=== PATIENT | female | born 1970 | race Caucasian/White ===

== ENCOUNTER 2020-05-31 01:10 | Outpatient (CLI) | payer OTHER, SELFPAY ==
[2020-05-31 18:04] LABS: SARS-CoV-2 RNA PCR Negative
== END 2020-05-31 01:11 | disposition home or self-care (01) ==
LOC: ANHCOVIDDT 01:10
PROVIDERS: PCP Family Medicine; Visit Provider Internal Medicine Gastroenterology
DX: Z01.818 Encounter for other preprocedural examination (principal); Z20.828 Contact with and (suspected) exposure to other viral communicable diseases
CPT/HCPCS: 87635; C9803; U0003

== ENCOUNTER 2020-06-04 00:59 | Day surgery (SDC) | payer OTHER, SELFPAY ==
[2020-05-28 16:03] VITALS: BMI 26.4
[2020-06-04 07:55] VITALS: BP 116/74; PULSE 89; RESP 16; TEMP 37.2; O2SAT 96; BMI 25.6
[2020-06-04] MEDS: LACTATED RINGERS 1,000 ML 150 ML IV CONT (08:03)
--- NOTE | 2020-06-04 08:45 | WPDANESEPPF ---
Anes - Initial Pre Proc Eval Procedure: Operation Date: 06/04/20 09:00 Proposed Procedures p Screening Colonoscopy - Jameel Villafana MD Date/Time: 06/04/20 08:45 Surgeon: Jameel Villafana MD Pre Op Diagnosis: Neoplasm Screening Patient Data Age: 50 Gender: F Height: 5 ft 8 in Weight: 76.5 kg Last Vital Signs Temp 37.2 C 06/04/20 07:55 Pulse 89 06/04/20 07:55 Resp 16 06/04/20 07:55 BP 116/74 06/04/20 07:55 Pulse Ox 96 06/04/20 07:55 Allergies Allergy/AdvReac Type Severity Reaction Status Date / Time No Known Allergies Verified 06/04/20 07:54 Home Medications Medication Instructions Recorded Confirmed Type peg 3350 240 gram-electrolytes 240 ml PO Q10M #4000 ml 05/28/20 Rx 22.72 gram-6.72 g-5.84 g powdr for soln Patient hx anesthesia problems: none Family hx anesthesia problems: none PMFSH Past Medical History Medical History Deficient knowledge of caesarean delivery Surgical History Surgical History History of ankle surgery History of toe surgery Social History Social History Years smoked: 10 Smoking status: Current some day smoker Tobacco type: cigarettes Second hand tobacco smoke exposure: Yes Alcohol intake: current Drinks per week: 6 Alcohol use details: BEER Substance use: never Substance use type: does not use Living arrangements: with family Gender identity (if verbalized by the patient): Female Spiritual care concerns: No Agree to blood products: Yes Anes - Eval Final PreProcedure Day of Procedure 06/04/20 08:45 Patient weight: normal Heart: regular rate and rhythm Lungs: decreased breath sounds Airway: Mallampati scale class II Neurological: alert and oriented Last oral intake: >/= 8 hours ASA classification: II Emergent: no Anesthetic plan: proceed Anesthesia type and monitoring: general GIVS and standard monitoring Informed Consent: The patient's anesthetic plan and its attendant risks and benefits were discussed with the patient/family/POA. Questions were solicited and answers provided to the satisfaction of the patient/family/POA.
--- NOTE | 2020-06-04 09:04 | PM.HPGS ---
History of Present Illness History of Present Illness Consent: Risks, benefits, and alternatives have been discussed and questions answered. Patient agrees to proceed with procedure. Chief complaint: Neoplasm Screening Narrative: Rekha Davenport is a 50 year old female here for first screening colonoscopy Review of Systems Constitutional: Constitutional: Denies headache(s) and Denies weakness Eyes: Eyes: Denies blurry vision ENT: Reports Normal hearing present, Denies headache(s) and Denies neck pain Cardiovascular: Cardiovascular: Denies chest pain and Denies dyspnea Respiratory: Respiratory: Denies dyspnea Gastrointestinal: Gastrointestinal: Reports no additional gastrointestinal complaints Genitourinary: Genitourinary: Denies dysuria Musculoskeletal: Musculoskeletal: Denies neck pain Integumentary/Breasts: Skin/Breast: Denies dry skin Neurologic: Reports Normal hearing present, Denies headache(s) and Denies weakness Psychiatric: Psychiatric: Denies anxiety Endocrine: Endocrine: Denies change in body appearance Hematologic/Lymphatic: Hematologic/Lymphatic: Denies easy bleeding Allergic/Immunologic: Allergic/Immunologic: Denies urticaria PMFSH Past Medical History Medical History Deficient knowledge of caesarean delivery Surgical History Surgical History History of ankle surgery History of toe surgery Social History Social History Years smoked: 10 Smoking status: Current some day smoker Tobacco type: cigarettes Second hand tobacco smoke exposure: Yes Alcohol intake: current Drinks per week: 6 Alcohol use details: BEER Substance use: never Substance use type: does not use Living arrangements: with family Gender identity (if verbalized by the patient): Female Spiritual care concerns: No Agree to blood products: Yes Meds Home Medications and Allergies Home Medications Medication Instructions Recorded Confirmed Type peg 3350 240 gram-electrolytes 240 ml PO Q10M #4000 ml 05/28/20 Rx 22.72 gram-6.72 g-5.84 g powdr for soln Allergies Allergy/AdvReac Type Severity Reaction Status Date / Time No Known Allergies Verified 06/04/20 07:54 Vital Signs Vital Signs - 24 hr 06/04/20 07:55 Temperature 99 F Pulse Rate 89 Respiratory Rate 16 Blood Pressure 116/74 Pulse Oximetry 96 Exam Const: General: comfortable and no acute distress HENMT: General nose exam: Normal nares present Eyes: General: appearance normal, both eyes and all related structures Neck: Neck: no JVD Resp: Auscultation: clear to auscultation bilaterally Cardio: Rate: regular rate Rhythm: regular rhythm GI: Inspection: non-distended GI Palp: Yes Soft to palpation Skin: General skin exam: normal color Neuro: General: gait normal Speech: normal speech Extrem: General: normal to inspection Psych: Mental Status: mental status grossly normal Assessment and Plan Assessment and plan (1) Screening for colon cancer: Code(s): Z12.11 - Encounter for screening for malignant neoplasm of colon Status: Acute
[2020-06-04 09:26] VITALS: BP 96/60; PULSE 88; RESP 25; O2SAT 97
[2020-06-04 09:36] VITALS: BP 96/64; PULSE 77; RESP 18; O2SAT 96
[2020-06-04 09:46] VITALS: BP 100/70; PULSE 74; RESP 16; O2SAT 97
== END 2020-06-04 09:52 | disposition home or self-care (01) ==
PROVIDERS: PCP Family Medicine; Visit Provider Internal Medicine Gastroenterology
PROC: 0DJD8ZZ Inspection of Lower Intestinal Tract, Via Natural or Artificial Opening Endoscopic (ICD-10-PCS; CPT 45378; principal; 2020-06-04 09:00)
DX: Z12.11 Encounter for screening for malignant neoplasm of colon (principal); K57.30 Diverticulosis of large intestine without perforation or abscess without bleeding; K64.8 Other hemorrhoids; F17.210 Nicotine dependence, cigarettes, uncomplicated
CPT/HCPCS: 45378; J2001; J2704; J7120

== ENCOUNTER 2023-05-18 08:23 | Outpatient (CLI) | payer OTHER, SELFPAY ==
--- NOTE | 2023-06-03 13:33 | WPDHOMESLEEP ---
Sleep Study - Home Unattended Date of Study: 05/18/23 Ordering Provider: ROBIN Whitmore Interpreting Provider: Cesia Mancera MD Home Sleep Study Type: Watch PAT Height: 1.73 m Weight: 78.925 kg Body Mass Index: 26.4 Neck Circumference (inches): 13.5 [place]: 9 Reason for Sleep Study Snoring, witnessed apneas Sleep History Diane Davenport is a 53-year-old female with history of recurrent pneumonia, low IgG who underwent a home sleep test for evaluation of witnessed apneas while sleeping by family members and snoring. There is a family history of sleep issues, her brother has sleep apnea. She never awakens from sleep short of breath. She frequently awakens at night with heartburn, belching or cough. She constantly snores and constantly snores loudly enough that others complain. She occasionally has trouble sleeping when she has a cold. She rarely suddenly wakes up gasping for breath during the night. She frequently has breathing problems at night. She occasionally sweats excessively at night. She never notices her heart pounding or beating irregularly during the night. She never falls asleep during the day. She never falls asleep while driving. She never experiences loss of muscle tone with strong emotion. She never has trouble at work because of sleepiness. She never feels paralyzed on waking or falling asleep. She never experiences vivid dreams upon waking or falling asleep. She rarely feels afraid of going to sleep. She rarely has nightmares. She occasionally recalls her dreams. She never has thoughts racing through her mind. She never feels sad or depressed. She never feels anxiety or worry about things. She occasionally notices parts of her body jerk. She occasionally kicks during the night. She frequently feels crawling or aching feelings in her legs. She occasionally feels leg pain at night. She never grinds her teeth during sleep and never has morning jaw pain. She never feels bothered by pain during the day and is occasionally awakened by pain during the night. She rarely wakes up feeling stiff, sore, and achy in the morning. She occasionally wakes with pain in her neck, spine, or joints. Normal bedtime is around 8pm on the weekdays and 9pm on the weekends, taking a few minutes to fall asleep. She typically gets about 8 hours of sleep per night. Her wake up time is around 5am on the weekdays and same on the weekends. She typically wakes up a couple times per night, awake 5 to 10 minutes and she will look at the clock, go to the bathroom, get a drink. She watches television before falling asleep. Habits: Former tobacco smoker. Drinks about 3 caffeinated beverages per day. Alcohol use is around 6 drinks per week. No recreational substance use. [facility] Past Medical History Medical History (Updated 06/03/23 @ 13:37 by Cesia Mancera MD) Deficient knowledge of caesarean delivery Immunoglobulin G deficiency Surgical History Surgical History History of ankle surgery History of toe surgery Social History Social History (Updated 05/11/23 @ 13:09 by Andrez Ling MA) Years smoked: 10 Smoking status: Former smoker Tobacco type: cigarettes Second hand tobacco smoke exposure: Yes Alcohol intake: current Drinks per week: 6 Alcohol use details: BEER Substance use: never Substance use type: does not use Lack of Transportation: No Lack of Food: Never True Current Housing: I Have Housing Concerned About Future Housing: No Difficulty Paying Gas/Electric Bills: No Difficulty Paying for Meds: No Currently Unemployed: No Difficulty w/ Childcare or Family Care: No Living arrangements: with family Occupation/Education: occupation Gender identity (if verbalized by the patient): Female Sexual Orientation (if Verbalized by the Patient): Straight or Heterosexual Spiritual care concerns: No Agree to blood products: Yes
[2023-06-03 13:37] VITALS: BMI 26.4
== END 2023-05-19 11:03 | disposition home or self-care (01) ==
LOC: ANHCSM 08:24
PROVIDERS: PCP Nurse Practitioner Family; Visit Provider Physician Assistant
DX: G47.10 Hypersomnia, unspecified (principal); G47.33 Obstructive sleep apnea (adult) (pediatric)
CPT/HCPCS: 95800

== ENCOUNTER 2023-07-22 10:35 | Outpatient (CLI) | payer OTHER, SELFPAY ==
--- NOTE | ~2023-07-22 | CT_ITS ---
EXAMINATION: CT diagnostic chest wo con DATE: 07/22/2023 10:53 INDICATION: Pneumonia, unspecified organism TECHNIQUE: Computed tomography (CT) of the chest was performed without intravenous contrast. The dose -length product (DLP) was 192.94 mGy-cm. Automated exposure control and iterative reconstruction tech nique were employed. COMPARISON: None FINDINGS: There are multiple ill-defined nodules and airspace opacities scattered throughout all lung zones. The largest nodule measures 8 mm in the left lower lobe. There is mild bilateral hilar and me diastinal lymphadenopathy. No pleural effusion or pneumothorax. The heart size is normal. Calcified c oronary artery atherosclerosis is noted. There is moderate thoracic spondylosis. Changes of cholecyst ectomy are noted. IMPRESSION: 1. Findings likely reflecting multifocal pneumonia. Consider follow-up CT in three months after appro priate therapy to assess for any persistent lung nodules. 2. Bilateral hilar and mediastinal lymphadenopathy, likely reactive. Reviewed, dictated and finalized at location B. TER IMPRESSION: 1. Findings likely reflecting multifocal pneumonia. Consider follow-up CT in th ree months after appropriate therapy to assess for any persistent lung nodules. 2. Bilateral hilar and mediastinal lymphadenopathy, likely reactive.
== END 2023-07-22 10:36 | disposition home or self-care (01) ==
PROVIDERS: PCP Nurse Practitioner Family; Visit Provider Physician Assistant
DX: J18.9 Pneumonia, unspecified organism (principal)
CPT/HCPCS: 71250

== ENCOUNTER 2023-10-14 13:33 | Outpatient (CLI) | payer OTHER, SELFPAY ==
--- NOTE | ~2023-10-14 | CT_ITS ---
CT Scan of the Chest without Contrast: Clinical Indication: Pulmonary nodule, pneumonia Technique: Contiguous sections were acquired throughout the chest without intravenous contrast. Dose reduction technique was used on this scan by utilizing automated exposure control and iterative recon struction technique. The dose-length product (DLP) was 83.36 mGy-cm. COMPARISON: 07/22/2023 Findings: There is no evidence of any significant mediastinal, hilar or axillary lymphadenopathy. The mediastin al soft tissues appear normal. There is no evidence of pleural or pericardial effusion. Numerous scattered irregular pulmonary nodular opacities, predominantly the lung bases, are similar t o prior exam, mild interstitial thickening. Several upper lobe nodules are improved, with several add itional small new nodules. Images through the upper abdomen reveal no abnormalities. Impression: Multiple ill-defined nodular pulmonary opacities are again present, predominantly at the lung bases, with waxing and waning of several upper lobe nodules bilaterally. Findings again suggest infectious/i nflammatory process, with little overall interval change from prior exam. Reviewed, dictated and finalized at [facility]. Impression: Multiple ill-defined nodular pulmonary opacities are again present, predominant ly at the lung bases, with waxing and waning of several upper lobe nodules bila terally. Findings again suggest infectious/inflammatory process, with little ov erall interval change from prior exam.
== END 2023-10-14 13:34 | disposition home or self-care (01) ==
PROVIDERS: PCP Nurse Practitioner Family; Visit Provider Nurse Practitioner Family
DX: R91.1 Solitary pulmonary nodule (principal); J18.9 Pneumonia, unspecified organism
CPT/HCPCS: 71250

== ENCOUNTER 2024-05-07 07:58 | Outpatient (CLI) | payer OTHER, SELFPAY ==
--- NOTE | ~2024-05-07 | CT_ITS ---
CT Scan of the Chest without Contrast: Clinical Indication: Pneumonia Technique: Contiguous sections were acquired throughout the chest without intravenous contrast. Dose reduction technique was used on this scan by utilizing automated exposure control and iterative recon struction technique. The dose-length product (DLP) was 223.97 mGy-cm. COMPARISON: 10/14/2023 Findings: Mildly prominent mediastinal lymph nodes are similar to prior exam, most prominent in the subcarinal and precarinal regions... The mediastinal soft tissues appear normal. There is no evidence of pleural or pericardial effusion. Innumerable irregular nodule opacities in the lungs with basilar predominance, are progressed from pr ior exam, increase in number and confluence/size of lesions. There are associated areas of interstiti al thickening. Images through the upper abdomen reveal no abnormalities. Impression: Interval increase in innumerable irregular nodule opacities and interstitial thickening throughout rossana th lungs. Findings could reflect worsening infectious/inflammatory process versus possibly metastatic disease. Correlate clinically. Consider attempted tissue sampling as indicated. Reviewed, dictated and finalized at location M. Impression: Interval increase in innumerable irregular nodule opacities and interstitial th ickening throughout both lungs. Findings could reflect worsening infectious/inf lammatory process versus possibly metastatic disease. Correlate clinically. 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
== END 2024-05-07 07:59 | disposition home or self-care (01) ==
LOC: ANHIMG 08:03
PROVIDERS: PCP Nurse Practitioner Family; Visit Provider Physician Assistant
DX: J18.9 Pneumonia, unspecified organism (principal)
CPT/HCPCS: 71250

== ENCOUNTER 2024-05-31 10:27 | Outpatient (CLI) | payer OTHER, SELFPAY ==
--- NOTE | ~2024-05-31 | PE_ITS ---
EXAMINATION: PET skull to mid thigh DATE: 05/31/2024 12:25 INDICATION: Other nonspecific abnormal finding of lung field. TECHNIQUE: Blood glucose level was 101 mg/dL. 10.932 mCi of 18-fluorodeoxyglucose (18-FDG) was admini stered i.v. Low dose computed tomography (CT) images were acquired from the base of the brain to the proximal thighs for attenuation correction and anatomic localization. Automated exposure control was employed. Dose-length product (DLP) was 1106 mGy-cm. Positron emission tomography (PET) images were a cquired in the same distribution. COMPARISON: Chest CT 05/07/2024, 10/14/2023, 07/22/2023 FINDINGS: Head/neck: There are normal-sized bilateral internal jugular and supraclavicular lymph nodes with inc reased activity. Chest: There are innumerable nodules in the lungs in a random. Many of the nodules demonstrate increa sed activity. The largest nodule measures 13 mm in left upper lobe with maximum SUV of 5.2. No pleura l effusion. Cardiomegaly is noted. No pericardial effusion. There is mild mediastinal and bilateral h ilar lymphadenopathy with increased activity. There are normal-sized right axillary lymph nodes with increased activity. Abdomen/pelvis/proximal thighs: The liver and spleen are normal. The gallbladder is absent. The pancr eas, adrenal glands, and kidneys are normal. There are calcified fibroids in the uterus. There is div erticulosis of the colon without evidence of diverticulitis. There are no dilated loops of bowel. The appendix is normal. There is mild retroperitoneal and pelvic lymphadenopathy with increased activity . For example, a left para-aortic node measures 2.0 x 1.4 cm with maximum SUV of 11.5. IMPRESSION: 1. Innumerable pulmonary nodules and widespread lymphadenopathy of the neck, chest, abdomen, and pelv is with increased activity, worsened from 10/14/2023. These findings are most likely sarcoid. Widespre ad infection such as fungal or mycobacterial infection could have a similar appearance. Reviewed, dictated and finalized at location A. NCIAL ASSISTANCE ADVISOR IMPRESSION: 1. Innumerable pulmonary nodules and widespread lymphadenopathy of the neck, ch est, abdomen, and pelvis with increased activity, worsened from 10/14/2023. Thes e findings are most likely sarcoid. Widespread infection such as fungal or myco bacterial infection could have a similar appearance.
[2024-05-31 10:51] LABS: Glucose Point of Care 101 mg/dl (65-105)
== END 2024-05-31 10:28 | disposition home or self-care (01) ==
PROVIDERS: PCP Nurse Practitioner Family; Visit Provider Internal Medicine Critical Care Medicine
DX: R91.8 Other nonspecific abnormal finding of lung field (principal)
CPT/HCPCS: 78815; A9552

== ENCOUNTER 2024-12-20 10:30 | Outpatient (CLI) | payer OTHER, SELFPAY ==
--- NOTE | ~2024-12-20 | MR_ITS ---
EXAMINATION: MR knee LT wo con DATE: 12/20/2024 10:57 INDICATION: Left knee pain TECHNIQUE: Magnetic resonance imaging (MRI) of the left knee was performed without intravenous contra st. Sequences included coronal PD-weighted FSE, coronal PD-weighted FS FSE, sagittal T2-weighted FSE , sagittal PD-weighted FS FSE and axial PD weighted fat saturated FSE. COMPARISON: None. FINDINGS: Medial compartment: Small tear, unclear whether horizontal or partial thickness radial which extends to the inferior caryn cular surface of the body of the medial meniscus. There is mild joint space narrowing in the medial c ompartment with partial-thickness cartilage loss with relatively smooth chondral surface and without degenerative subchondral changes along the medial tibial plateau and anterior to central weightbearin g medial femoral condyle. Lateral compartment: Lateral meniscus is normal. Small region of partial-thickness chondral fissuring with mild underlying subarticular edema-like signal change at the anteromedial margin of the lateral tibial plateau. Caryn cular cartilage is otherwise normal. Patellofemoral compartment: There is deep chondral fissuring at the medial and lateral patellar facets with small focus of underl magui subarticular edema-like signal change at the inferior aspect of the lateral facet. There is deep chondral ulceration at the mid to inferior aspect of the trochlear groove and at the inferomedial as pect of the lateral trochlea with additional underlying mild subarticular edema-like signal change in feriorly. Ligaments and tendons: Anterior and posterior cruciate ligaments are normal. The medial collateral ligament and fibular luis carlos ateral ligament complex are normal. The extensor mechanism is normal. The visualized medial and later al hamstring tendons as well as the iliotibial band are normal. Fluid: Physiologic amount of fluid in the joint space. No loose osteochondral bodies identified. Small Blue 's cyst. Osseous/other: Bone marrow signal is normal aside from the previous noted small foci of subarticular edema-like sign al change. No fracture or pathologic marrow replacing process. IMPRESSION: 1. Small tear at the body the medial meniscus. 2. 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 3. Small Blue's cyst. Reviewed, dictated and finalized at location A. IMPRESSION: 1. Small tear at the body the medial meniscus. 2. Mild medial and patellofemoral compartments dominant tricompartmental osteoa rthritis. 3. Small Blue's cyst.
== END 2024-12-20 10:31 | disposition home or self-care (01) ==
LOC: MICIMG 10:31
PROVIDERS: PCP Nurse Practitioner Family; Visit Provider Orthopaedic Surgery
DX: M71.22 Synovial cyst of popliteal space [Baker], left knee (principal); M17.12 Unilateral primary osteoarthritis, left knee; S83.207A Unspecified tear of unspecified meniscus, current injury, left knee, initial encounter; X58.XXXA Exposure to other specified factors, initial encounter
CPT/HCPCS: 73721

== ENCOUNTER 2025-01-21 01:40 | Day surgery (SDC) | payer OTHER, SELFPAY ==
--- NOTE | 2025-01-15 15:39 | SUR.PREOP ---
Report to the Outpatient Waiting Room, entrance under the green pavilion located off [facility], at time 9am on date 01/21/2025. Planned Procedure Time: 11am.? Time changes happen often and if your time is changed the preop area will call you the afternoon before. - You and your visitor will be asked to self-screen and do not enter if you have any COVID symptoms. Please call surgeon if you need to reschedule. - A mask is optional within the hospital at this time. Patients may have clear liquids (water, carbonated beverages, clear teas, apple juice) until 3 hours prior to surgery with a maximum of 20 ounces. - No food from midnight until time of surgery and no smoking, or chewing tobacco (or any form of nicotine). No chewing gum, candy or mints. - Infants may have breast milk until 4 hours before surgery, formula 6 hours prior to surgery. - Children will be allowed to drink immediately following surgery.? If applicable, please bring a bottle or sippy cup to assist with drinking. Juice, water, soda, and popsicles are readily available.? For infants on formula, please bring formula the day of surgery.? Pacifiers are allowed. Take only the following medications with a SIP of water on the morning of surgery: n/a DO NOT STOP ANY OF YOUR OTHER PRESCRIPTION MEDICATIONS PRIOR TO SURGERY EXCEPT THE FOLLOWING Hold all vitamins and supplements for 3 days per anesthesiologist. Medications to discontinue per physician Vitamins Date to take last dose 01/18/2025 Please no make-up, nail mexican, hairspray, perfume, deodorant, or body powder the day of surgery.? No jewelry (including any body piercings) or valuables the day of surgery, leave them at home.? Please take a shower or bath the night before, or the morning of, surgery with an antibacterial soap.? Wear comfortable, loose fitting clothing.? Children are encouraged to wear pajamas. - Jewelry must be removed prior to entering the operating room.? Rings and piercings that are not removed may be cut off. - The hospital will not accept responsibility for valuables.? - Please leave all valuables, including medications, at home the day of surgery. If you are going home after surgery, a licensed port cdl a driver must drive you home.? - NO public transportation without another adult if you receive anesthesia. - We recommend that an adult stay with you for 24 hours following discharge. - We also recommend that you do not drive, make important decision, drink alcoholic beverages, or take any drugs that were not prescribed by your health care provider for at least 24 hours after your discharge time. For Pediatric surgeries, we recommend two adults accompany the child home. Follow any additional instructions given to you from your surgeon. Telephone instructions given to Rekha Davenport and asked if any additional questions and then verbalized understanding. Patient advised to call surgeon office or pre surgery nurse liaison [phone] if any additional questions.
[2025-01-16 14:56] VITALS: BMI 30.5
--- NOTE | 2025-01-17 07:17 | PM.IMHP ---
H&P: HPI History of Present Illness Date/Time: 01/17/25 07:17 Chief Complaint: Patient has catching and locking of her left knee. She has failed conservative treatment. She would like to consider arthroscopic intervention. She has meniscal pathology. Review of Systems Musculoskeletal: Musculoskeletal: Reports arthralgias, Reports joint swelling and Reports stiffness Neurologic: Reports abnormal gait [facility] Past Medical History Medical History Immunoglobulin G deficiency Deficient knowledge of caesarean delivery Surgical History Surgical History History of toe surgery History of ankle surgery Social History Social History Social History: Patient declined SDOH- 02/27/24 Years smoked: 10 Smoking status: Never smoker Tobacco type: cigarettes Second hand tobacco smoke exposure: Yes Alcohol intake: current Drinks per week: 4 Alcohol use details: BEER Substance use: never Substance use type: does not use Do You Feel Safe in your Home?: Yes Lack of Transportation: No Lack of Food: Never True Current Housing: I Have Housing Concerned About Future Housing: No Difficulty Paying Gas/Electric Bills: No Difficulty Paying for Meds: No Currently Unemployed: No Education: Master's Degree or Higher Difficulty w/ Childcare or Family Care: No Living arrangements: alone Occupation/Education: occupation Gender identity (if verbalized by the patient): Female Sexual Orientation (if Verbalized by the Patient): Straight or Heterosexual Spiritual care concerns: No Agree to blood products: Yes Meds Home Medications and Allergies Home Medications ?Medication ?Instructions ?Recorded ?Confirmed ?Type multivitamin 1 tablet PO DAILY 03/23/23 01/15/25 History immune globu G 1 gram/10 mL(10 10 ml subcut WEEKLY 01/13/24 01/15/25 History %)-gly-IgA ave 46 mcg/mL injection soln (Gamunex-C) fluticasone fur. 100 mcg-umeclid 1 inh inhalation DAILY 05/09/24 01/15/25 History 62.5 mcg-vilant 25 mcg inhalat.powder (Trelegy Ellipta) Allergies Allergy/AdvReac Type Severity Reaction Status Date / Time No Known Allergies Allergy Verified 01/15/25 15:28 Exam Narrative: On exam she is tender medially on the left knee. She has catching and locking with manipulation. She has pain to palpation. She walks mildly antalgic gait. Neurologically she appears to be intact. Eyes: General: appearance normal, both eyes and all related structures Neck: Neck: supple Resp: Effort & Inspection: normal respiratory effort Cardio: Rate: regular rate Rhythm: regular rhythm Radiology Reports: Comments: Magnetic Resonance Report Signed Patient: Rekha Davenport EXAMINATION: MR knee LT wo con DATE: 12/20/2024 10:57 INDICATION: Left knee pain TECHNIQUE: Magnetic resonance imaging (MRI) of the left knee was performed without intravenous contrast. Sequences included coronal PD-weighted FSE, coronal PD-weighted FS FSE, sagittal T2-weighted FSE, sagittal PD-weighted FS FSE and axial PD weighted fat saturated FSE. COMPARISON: None. FINDINGS: Medial compartment: Small tear, unclear whether horizontal or partial thickness radial which extends to the inferior articular surface of the body of the medial meniscus. There is mild joint space narrowing in the medial compartment with partial-thickness cartilage loss with relatively smooth chondral surface and without degenerative subchondral changes along the medial tibial plateau and anterior to central weightbearing medial femoral condyle. Lateral compartment: Lateral meniscus is normal. Small region of partial-thickness chondral fissuring with mild underlying subarticular edema-like signal change at the anteromedial margin of the lateral tibial plateau. Articular cartilage is otherwise normal. Patellofemoral compartment: There is deep chondral fissuring at the medial and lateral patellar facets with small focus of underlying subarticular edema-like signal change at the inferior aspect of the lateral facet. There is deep chondral ulceration at the mid to inferior aspect of the trochlear groove and at the inferomedial aspect of the lateral trochlea with additional underlying mild subarticular edema-like signal change inferiorly. Ligaments and tendons: Anterior and posterior cruciate ligaments are normal. The medial collateral ligament and fibular collateral ligament complex are normal. The extensor mechanism is normal. The visualized medial and lateral hamstring tendons as well as the iliotibial band are normal. Fluid: Physiologic amount of fluid in the joint space. No loose osteochondral bodies identified. Small Blue's cyst. Osseous/other: Bone marrow signal is normal aside from the previous noted small foci of subarticular edema-like signal change. No fracture or pathologic marrow replacing process. IMPRESSION: 1. Small tear at the body the medial meniscus. 2. 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 3. Small Blue's cyst. Reviewed, dictated and finalized at location A. Hand X-Ray 01/12/23 Knee X-Ray 01/14/24 Knee MRI 12/20/24 Assessment and Plan Assessment and plan (1) Acute medial meniscus tear of left knee: Code(s): S83.242A - Other tear of medial meniscus, current injury, left knee, initial encounter Status: Acute Assessment and Plan: Patient has a meniscal tear of the left knee. She she has failed conservative treatment. She would like to consider arthroscopic intervention. I discussed the risks, benefits, limitations, and alternatives with the patient in detail. She understands and agrees would like to proceed. Will proceed per her request.
[2025-01-21] VITALS (8 sets, daily range): BP systolic 102–140; BP diastolic 59–72; PULSE 81–92; RESP 14–18; TEMP 36.1–37.1; O2SAT 96–100
--- NOTE | 2025-01-21 07:04 | WPDHPUPDATE1 ---
History and Physical Update Update Date/Time: 01/21/25 07:04 History and Physical has been reviewed, including an updated exam of the patient. There are NO changes in the patient's condition. Risks, benefits, and alternatives have been discussed and questions answered. Patient agrees to proceed with procedure.
[2025-01-21] MEDS: ACETAMINOPHEN 500 MG TABLET 1000 MG PO (07:24)
[2025-01-21] MEDS: KETOROLAC 15 MG/ML VIAL (*BKC) IV PUSH (07:24)
[2025-01-21] MEDS: LACTATED RINGERS 1,000 ML 30 ML IV CONT (07:35)
--- NOTE | 2025-01-21 08:13 | P.PNAN_ITS ---
Anes - Eval Final PreProcedure Day of Procedure 01/21/25 08:13 Patient weight: obese Heart: regular rate and rhythm Lungs: clear to auscultation Airway: Mallampati scale class II Neurological: alert and oriented Last oral intake: >/= 8 hours ASA classification: II Emergent: no Anesthetic plan: proceed Anesthesia type and monitoring: general LMA and standard monitoring Results Review: All pre-operative results and documents have been reviewed as part of the pre- operative evaluation. Informed Consent: The patient's anesthetic plan and its attendant risks and benefits were discussed with the patient/family/POA. Questions were solicited and answers provided to the satisfaction of the patient/family/POA.
[2025-01-21] MEDS: ceFAZolin 2 GM/D5W 50 ML 2 GM/50 ML BAG IVPB (08:18)
[2025-01-21] MEDS: LIDO 1%/EPINEPHRINE 1:100,000 50 ML VIAL 30 ML INFILTRATE (08:41)
--- NOTE | 2025-01-21 08:44 | W.PM.PROC2 ---
Procedure Note - Detailed Date of Procedure 01/21/25 Pre-op Diagnosis Medial meniscal tear left knee Post-op Diagnosis Same Procedure Performed LEFT knee arthroscopy with partial meniscectomy Surgeon Brendan Rojas MD Anesthesia General Indications Pain, Locking and Catching Description of Procedure Patient brought to operating room # 7. An anesthetic was administered. The knee was sterilely prepped and draped in the usual manner. Standard portals were used. Superior medial portal was used for the outflow cannula, inferior lateral portal was used for the scope, inferior medial portal was used for the instruments. Arthroscopy was performed, the patellar femoral joint degenerative changes. The medial compartment showed a complex tear. She had grade 3 changes of the medial femoral condyle. The lateral compartment showed fraying. The ACL was intact. Using baskets and alex the meniscal tear was trimmed back to a stable base so the nothing further could be pulled into the joint. Any loose or delaminated fragments were gently trimmed to a stable base. At this point the instruments were withdrawn, sutures placed and patient left the operating room in satisfactory condition. Estimated Blood Loss 20 Drains No Packing No Pathology None sent Complications No immediate complications Condition Stable Disposition PACU [facility] Billing Surgery - Charge Forward: Surgery Billing ([id number] Scope [facility])
== END 2025-01-21 10:45 | disposition home or self-care (01) ==
PROVIDERS: PCP Nurse Practitioner Family; Visit Provider Orthopaedic Surgery
PROC: (CPT 29870; principal; 2025-01-21 09:00)
DX: S83.232A Complex tear of medial meniscus, current injury, left knee, initial encounter (principal); X58.XXXA Exposure to other specified factors, initial encounter; E66.9 Obesity, unspecified; Z68.30 Body mass index [BMI] 30.0-30.9, adult
CPT/HCPCS: 29881; A9270; J0690; J1100; J1885; J2003; J2004; J2250; J2405; J2704; J3010; J7120

== ENCOUNTER 2025-04-29 08:23 | Outpatient (CLI) | payer OTHER, SELFPAY ==
--- NOTE | ~2025-04-29 | CT_ITS ---
Exam: CT chest without contrast Clinical History: [Sarcoid, persistent nodules. ] Comparison: [ Chest CT 05/07/2024] Technique: Multiple axial CT images of the chest without with IV contrast. Sagittal and coronal reformatted images were obtained. FINDINGS: Lungs and pleura: [ Tracheal bronchial tree is patent.] No pneumothorax. No pleural effusion. Numerous pulmonary nodules and patchy consolidations scattered throughout both lungs which have slightly increased in size and number as compared to the study from 05/07/2014. For example, there is a 1.9 x 1.8 cm consolidation in the right lower lobe which previously measured 11 x 11 mm. There is a 1.2 x 1.6 cm pulmonary nodule in the left lower lobe which previously measured 1.1 x 0.9 cm. Mediastinum and pulmonary kj: [ No mass or adenopathy.] Axillary/intramammary and supraclavicular: Several enlarged mediastinal and hilar lymph nodes which appear to have slightly increased in size, however, evaluation is limited due to lack of contrast administration to determine the exact change in size of the enlarged mediastinal and hilar lymph nodes. Heart and great vessels: [ Normal heart size.[ [ No pericardial effusion.] [ No aneurysm.] There are coronary artery calcifications. Chest Wall: [ Unremarkable.] Upper Abdomen: [ No significant findings.] Osseous structures: [ No acute fracture or destructive lesion.] [ Multilevel degenerative change in the visualized spine.] Additional findings: There is a too small to characterize low-attenuation lesion in the left lobe of the liver, unchanged. IMPRESSION: 1. Numerous pulmonary nodules and patchy consolidations scattered throughout both lungs which have slightly increased in size and number as compared to the study from 05/07/2014. For example, there is a 1.9 x 1.8 cm consolidation in the right lower lobe which previously measured 11 x 11 mm. There is a 1.2 x 1.6 cm pulmonary nodule in the left lower lobe which previously measured 1.1 x 0.9 cm. Correlate clinically. Follow-up is recommended. 2. Several enlarged mediastinal and hilar lymph nodes which appear to have slightly increased in size, however, evaluation is limited due to lack of contrast administration to determine the exact change in size of the enlarged mediastinal and hilar lymph nodes. Correlate clinically. Follow-up is recomm ended. Reviewed, dictated and finalized at location Q. IMPRESSION: 1. Numerous pulmonary nodules and patchy consolidations scattered throughout [place] th lungs which have slightly increased in size and number as compared to the [facility] from 05/07/2014. For example, there is a 1.9 x 1.8 cm consolidation in the right lower lobe which previously measured 11 x 11 mm. There is a 1.2 x 1.6 cm pulmonary nodule in the left lower lobe which previously measured 1.1 x 0.9 cm. Correlate clinically. Follow-up is recommended. 2. Several enlarged mediastinal and hilar lymph nodes which appear to have slig htly increased in size, however, evaluation is limited due to lack of contrast administration to determine the exact change in size of the enlarged mediastina l and hilar lymph nodes. Correlate clinically. Follow-up is recommended.
== END 2025-04-29 08:24 | disposition home or self-care (01) ==
LOC: MICIMG 08:25
PROVIDERS: PCP Nurse Practitioner Family; Visit Provider Internal Medicine Critical Care Medicine
DX: R91.8 Other nonspecific abnormal finding of lung field (principal)
CPT/HCPCS: 71250